=== PATIENT | male | born 1955 | race Caucasian/White ===

== ENCOUNTER → 2016-08-22 | Outpatient (CLI) | payer BC ==
[~2016-08-22] MED LIST: LPTUNK; LRT5 PO; LSNUNK; OXYC1TAB3 PO; [UNRECOGNIZED DRUG - CODE]; [UNRECOGNIZED DRUG - OTHER]
--- NOTE | 2016-08-22 16:04 | DIAGNOSTIC IMAGING REPORT ---
[facility] CLINICAL HISTORY: Nephrolithiasis. FINDINGS: 2 AP supine abdominal radiographs are compared to study dated 06/11/2015 and correlated with abdominal CT dated 03/10/2011. There is a nonobstructed abdominal bowel gas pattern noting moderate colonic fecal retention. This partially obscures the renal shadows. There is no radiographic evidence of nephrolithiasis. The bony structures appear intact. IMPRESSION: 1. There is no radiographic evidence of nephrolithiasis. 2. Moderate colonic fecal retention. Electronically signed by: Ed Maravilla M.D. 08/22/2016 4:03 PM Dictated Date/Time: 08/22/2016 4:02 PM
--- NOTE | 2016-08-29 10:03 | CODING QUERY MEDICAL NECESSITY ---
SUPPORTING DIAGNOSIS NEEDED A supporting diagnosis is required for the test/procedure performed on this patient in order for us to be reimbursed by the patient's insurance. Please provide a supporting diagnosis for the following test/procedure listed below next to the test name along with your signature. *If there is no additional diagnosis for this patient that would support the following test/procedure please document that below next to the test/procedure. Test(s)/Procedure(s) that require a supporting diagnosis: * PSA DIAGNOSIS: * DOS: 08/22/16 Provider Signature: Date: Thank you Charmaine Mcleod [employer] Once completed, please kindly fax back to [phone] For questions please call [phone]
== END | disposition home or self-care (01) ==
LOC: C.RAD 14:57
PROVIDERS: ATTEND Urology
DX: N20.0 Calculus of kidney (principal); K59.00 Constipation, unspecified; Z12.5 Encounter for screening for malignant neoplasm of prostate